=== PATIENT | female | born 1990 | race Caucasian/White ===

== ENCOUNTER 2021-10-16 14:52 | Emergency (ER) | payer OTHER, SELFPAY ==
[2021-10-16 15:14] VITALS: BP 137/71; PULSE 101; RESP 19; TEMP 36.7; O2SAT 97; BMI 18.6
--- NOTE | 2021-10-16 16:15 | HMH.EDUTC ---
[facility] [place] Disposition Clinical Impression: Cellulitis of right foot Infected insect bite Qualifiers: Encounter type: initial encounter Qualified Code(s): W57.XXXA - Bitten or stung by nonvenomous insect and other nonvenomous arthropods, initial encounter Disposition: Home, Self-Care Condition on Discharge: Good Instructions: Cellulitis Additional Instructions: Keep the wound clean and dry. Watch the for signs of worsening infection, such as redness, swelling, drainage, fever. etc. take tylenol or ibuprofen for pain. Follow up with your regular doctor. GO TO THE ER FOR ANY WORSENING SYMPTOMS OR CONCERNS. Prescriptions: Mupirocin [Bactroban 2% Ointment 22gm tube] 1 applicatio TP TID 7 Days #1 gm Transmission Status: Received by [id number] cephALEXin [cephALEXin 500mg capsule] 500 mg PO Q6H 10 Days #40 cap Transmission Status: Received by [id number] Referrals: Jeffrey Burks [Primary Care Provider] - Time of Disposition: 16:17 Medical Decision Making - Medical Records Medical records reviewed: No: I reviewed the patient's medical records. - Curry Inquiry Pt receiving controlled substance: No Vital Signs: 10/16/21 15:14 10/16/21 16:21 Temperature 98.0 F 98.0 F Temperature Source Oral Pulse Rate 101 H Pulse Rate [Left] 101 H Respiratory Rate 19 19 Blood Pressure 137/71 Blood Pressure [Right Arm] 137/71 Blood Pressure Mean [Right Arm] 93 02 Sat by Pulse Oximetry 97 [facility] [place] HPI - General Stated complaint: Possible bug bite LT foot; imflamation Time Seen by Provider: 10/16/21 15:15 Mode of Arrival: Ambulatory Source of Information: Patient Limitations: No Limitations Description of Symptoms (Recalled from Triage Doc. by RN): patient comes in with complaints of possible bug bite on left ankle. spot is red, swollen and tender to the touch. HEENT Symptoms (Recalled from RN notes): No Resp Symptoms (Recalled from RN notes): No Skin Symptoms (Recalled from RN notes): Yes MS Symptoms (Recalled from RN notes): No Functional Status (Recalled from RN notes): n/a - History of Present Illness Provider Complaint: She states that she has a red tender area on her right ankle. It has been present for the past 3 days. She originally had a red area there about 2 weeks ago when her shoe rubbed her there, but that wound got better. - Related Data Previous Rx's Medication Instructions Recorded Mupirocin [Bactroban 2% Ointment 1 applicatio TP TID 7 Days #1 gm 10/16/21 22gm tube] cephALEXin [cephALEXin 500mg 500 mg PO Q6H 10 Days #40 cap 10/16/21 capsule] Allergies Allergy/AdvReac Type Severity Reaction Status Date / Time No Known Allergies Allergy Verified 10/16/21 15:17 - Worker's Comp Is this a Worker's Comp case?: No [facility] History - Hepatitis A Screen Attestation statement:: This patient has been screened for Hepatitis A risk factors. I have reviewed the patient's past medical history: Yes ROS Obtained: Yes All systems reviewed & no additional complaints - Constitutional Constitutional: Denies chills, Denies fever(s) - Musculoskeletal Musculoskeletal: Denies joint pain - Integumentary/Breasts Skin/Breast: Reports as per HPI - Neurologic Neurologic: Denies tingling/numbness/burning sensations Physical Exam - General General appearance: alert, in no apparent distress - Head Head exam: atraumatic, normocephalic, normal inspection - Eye Eye exam: Present: normal appearance, PERRL, EOMI - ENT ENT exam: Present: normal exam, normal oropharynx, mucous membranes moist, TM's normal bilaterally, normal external ear exam - Neck Neck exam: Present: normal inspection, full ROM, trachea midline. Absent: meningismus, lymphadenopathy - Chest Chest inspection: Present: normal inspection, symmetric chest wall rise. Absent: tenderness - Respiratory Respiratory exam: Present: normal lung sounds bilaterally. Absent: respiratory
[2021-10-16 16:21] VITALS: BP 137/71; PULSE 101; RESP 19; TEMP 36.7
== END 2021-10-16 16:24 | disposition home or self-care (01) ==
PROVIDERS: Emergency Provider Nurse Practitioner Family; PCP Internal Medicine
DX: L03.115 Cellulitis of right lower limb (principal); W57.XXXA Bitten or stung by nonvenomous insect and other nonvenomous arthropods, initial encounter
CPT/HCPCS: 99212; G0463

== ENCOUNTER 2021-11-02 14:23 | Emergency (ER) | payer OTHER, SELFPAY ==
[2021-11-02 14:24] VITALS: BP 138/80; PULSE 113; RESP 16; TEMP 36.8; O2SAT 97; BMI 18.3
--- NOTE | 2021-11-02 15:19 | HMH.EDGENADL ---
Discharge Plan Disposition Patient Disposition: Home, Self-Care Condition: Good Chief Complaint: Skin/Abscess/Foreign Body Prescriptions Prescriptions: New clindamycin HCl 300 mg capsule 300 mg PO QID Qty: 28 0RF No Action mupirocin 22 GM ointment 1 applicatio TP TID 7 Days Qty: 1 0RF Referrals Referrals: Jeffrey Burks [Primary Care Provider] - Enter time for follow up Activity Restrictions/Add. Instructions Additional Instructions/Restrictions: Taking clindamycin as prescribed. Additional instructions for ABSCESS: Day one and two: Remove the bandage and shower the area, leaving the packing in place. Gently blot dry. Apply a bandage. Day three: Follow-up with primary care physician, clinic, or Urgent Treatment [facility] for packing removal and culture results. Return to the emergency department if increasing pain, swelling, redness, red streaks or fever greater than 101 degrees. Clinical Impressions Clinical Impression: Cutaneous abscess Instructions Patient Instructions: DI for Skin Abscess Discharge ED Provider: Wong Sue General Adult HPI General Chief complaint: Skin/Abscess/Foreign Body Stated complaint: Blister on LT ankle with pain and burning Time Seen by Provider: 11/02/21 15:19 Mode of Arrival: Ambulatory Source of Information: Patient Limitations: No Limitations Description of Symptoms (Recalled from ER Triage Doc. by RN): to ed per pvt car with c/o abscess to lt ankle x 2 weeks states seen in [facility] at [facility] time and given keflex states she has finished course of meds, blister noted after finished antibiotics which opened up and started draining. area continues to be painful, drain with redness around site. . pt denies fever, chills, nausea, vomiting. cpta none History of Present Illness HPI narrative: States that 2 weeks ago she developed a red bump on the medial aspect of her left ankle over the medial malleolus. No trauma or bug bite noted. Seen at the urgent treatment center and prescribed Keflex and mupirocin ointment. She says after she finished the antibiotics he had blistered and started draining. No fever. She does have a history of MRSA. Related Data Previous Rx's Medication Instructions Recorded mupirocin 2 % topical ointment 1 applicatio topical TID 7 days #1 10/16/21 g clindamycin HCl 300 mg capsule 300 mg PO QID #28 caps 11/02/21 Allergies Allergy/AdvReac Type Severity Reaction Status Date / Time No Known Allergies Allergy Verified 10/16/21 15:17 [facility] Social History (Updated 11/02/21 @ 15:48 by Wong Sue MD) Smoking Status: Never smoker alcohol intake: never current occupational status: other ROS Obtained: Yes Systems reviewed as appropriate & no additional complaints except as documented Constitutional Constitutional: Denies fever(s) Integumentary/Breasts Skin/Breast: Reports furuncle Physical Exam General General appearance: alert and in no apparent distress Respiratory Respiratory exam: Absent respiratory distress Cardiovascular Cardiovascular exam: Present regular rate Expanded Lower Extremity Exam Left: Comment: Cutaneous abscess over the medial malleolus. There is an open draining sinus and pus is able to be expressed. There is exfoliation over the abscess. The abscess is 2 cm diameter. There is no surrounding cellulitis and no lymphangitis. Neurological Exam Neurological exam: Present alert and oriented X3; Absent motor sensory deficit Psychiatric Psychiatric exam: Present normal affect and normal mood Skin Skin exam: Present warm and dry Medical Decision Making Curry Inquiry Pt receiving controlled substance: No Vital Signs: 11/02/21 14:24 Temperature 98.3 F Temperature Source Oral Pulse Rate [Radial] 113 H Respiratory Rate 16 Blood Pressure [Right Arm] 138/80 Blood Pressure Mean [Right Arm] 99 Blood Pressure Position [Right Arm] Sitting 02 Sat by Pulse Oximetry 97 [facility]
[2021-11-02 15:54] VITALS: BP 114/74; PULSE 68; RESP 16; TEMP 37.2; O2SAT 98
== END 2021-11-02 15:55 | disposition home or self-care (01) ==
PROVIDERS: Emergency Provider Emergency Medicine; PCP Internal Medicine
DX: L02.415 Cutaneous abscess of right lower limb (principal)
CPT/HCPCS: 10060; 87070; 87077; 87186; 87205; 99283